=== PATIENT | female | born 1940 | race Caucasian/White ===

== ENCOUNTER 2017-02-01 08:03 | Day surgery (SDC) | payer MEDICARE, OTHER ==
[~2017-02-01] VITALS: Ht 157.5 cm; Wt 72.7 kg
[2017-02-01 08:20] VITALS: BP 113/55; PULSE 62; TEMP 98.3
[2017-02-01] MEDS ORDERED: COSOPT 2%-0.5%10 ML OU (08:21)
[2017-02-01] MEDS ORDERED: ZOCOR 20MG20 MG PO (08:29)
[2017-02-01] MEDS ORDERED: DYAZIDE 25 MG-31 CAP PO (08:30)
[2017-02-01] MEDS ORDERED: XALATAN EYE DROPS OD (08:31)
[2017-02-01] MEDS ORDERED: NAPROSYN500 MG PO (08:31)
[2017-02-01] MEDS ORDERED: CEROVITE SENIOR1 TA1 PO (08:32)
[2017-02-01] MEDS ORDERED: ALLERGY TAB PO (08:32)
[2017-02-01] MEDS ORDERED: EPA FISH OIL1 SGL PO (08:33)
[2017-02-01] MEDS ORDERED: CALCIUM 600MG+D1 TAB PO (08:33)
[2017-02-01] MEDS ORDERED: ADVIL200 MG PO (08:33)
[2017-02-01] MEDS ORDERED: ALKA-SELTZER HE1 TEF PO (08:34)
[2017-02-01 10:40] VITALS: BP 115/67; PULSE 64; TEMP 97.5
[2017-02-01 11:00] VITALS: BP 116/56; PULSE 65
[2017-02-01 11:15] VITALS: BP 115/662; PULSE 66
== END 2017-02-01 11:35 | disposition home or self-care (01) ==
LOC: SDCO 08:03
DX: D12.2 Benign neoplasm of ascending colon (principal); D12.3 Benign neoplasm of transverse colon; D12.4 Benign neoplasm of descending colon; K64.0 First degree hemorrhoids; K57.30 Diverticulosis of large intestine without perforation or abscess without bleeding; E78.00 Pure hypercholesterolemia, unspecified; Z85.43 Personal history of malignant neoplasm of ovary; Z86.010 Personal history of colon polyps; Z80.0 Family history of malignant neoplasm of digestive organs
CPT/HCPCS: OP; J2250; J3010; J7030

== ENCOUNTER 2017-12-20 15:45 | Observation (INO) | payer MEDICARE, OTHER ==
[~2017-12-20] VITALS: Ht 157.5 cm; Wt 68.4 kg
[~2017-12-20 15:45] MED LIST: ADVIL200 MG PO; ALKA-SELTZER HE1 TEF PO; ALLERGY TAB PO; CALCIUM 600MG+D1 TAB PO; CEROVITE SENIOR1 TA1 PO; COSOPT 2%-0.5%10 ML OU; DYAZIDE 25 MG-31 CAP PO; EPA FISH OIL1 SGL PO; NAPROSYN500 MG PO; XALATAN EYE DROPS OD; ZOCOR 20MG20 MG PO
[2017-12-20 16:14] LABS: BASO % 0.4 % (0.0-2.0); EOS # 0.1 (0.0-0.7); EOS % 1.3 % (0-4.0); GRAN # 7.7 (1.4-6.5); GRAN % 71.8 % (42.2-75.2); HEMATOCRIT 43.1 % (37.0-47.0); HEMOGLOBIN 15.8 g/dl (12.5-16.0); LYMPH # 1.9 (1.2-3.4); LYMPH % 17.9 % (20.0-51.0); MEAN CELL VOLUME 89 fl (80.0-100.0); MEAN CORPUSCULAR HEMOGLOBIN 32 pg (27.0-31.0); MEAN CORPUSCULAR HGB CONC 37 g/dl (33.0-37.0); MEAN PLATELET VOLUME 8.3 fl (7.4-10.4); MONO # 0.9 (0.1-0.6); MONO % 8.3 % (1.7-9.3); PLATELET COUNT 280 K/mm3 (130-400); RED BLOOD COUNT 4.87 M/mm3 (4.10-5.30)
[2017-12-20 16:27] LABS: ANION GAP 13 mmol/L (7-16); BLOOD UREA NITROGEN 16 mg/dL (7-17); CALCIUM 9.5 mg/dL (8.4-10.2); CARBON DIOXIDE 28 mmol/L (22-30); CHLORIDE 90 mmol/L (98-107); CREATININE, serum 0.89 mg/dL (0.52-1.25); GLUCOSE 108 mg/dL (74-106); SODIUM 131 mmol/L (137-145)
[2017-12-20 16:30] LABS: C-REACTIVE PROTEIN < 0.5 mg/dL (0.0-0.9)
[2017-12-20 16:36] LABS: COLLECTION METHOD CATHETER
[2017-12-20 16:42] LABS: MUCOUS Present /lpf; PH 5 (5-8); SQUAMOUS EPITHELIAL None Seen /hpf; URINE APPEARANCE Clear; URINE BACTERIA Rare /hpf; URINE BILIRUBIN Negative (NEGATIVE); URINE BLOOD Negative (NEGATIVE); URINE COLOR Yellow; URINE GLUCOSE Negative (NEGATIVE); URINE KETONE Trace (NEGATIVE); URINE LEUKOCYTE ESTERASE Negative (NEGATIVE); URINE NITRATE Negative (NEGATIVE); URINE PROTEIN(semi-quant) Negative (NEGATIVE); URINE RBC 0-2 /hpf; URINE UROBILINOGEN Negative (NEGATIVE)
[2017-12-20] MEDS ORDERED: DYAZIDE 25 MG-31 CAP PO (17:13)
[2017-12-20 22:29] VITALS: BP 151/59; PULSE 58; TEMP 97.9
[2017-12-20 23:24] VITALS: BP 143/62; PULSE 64; TEMP 97.8
[2017-12-21] VITALS (9 sets, daily range): BP systolic 123–155; BP diastolic 46–62; PULSE 60–77; TEMP 97.6–98.3
[2017-12-21 07:00] LABS: BASO % 0.1 % (0.0-2.0); GRAN # 7.1 (1.4-6.5); GRAN % 81.3 % (42.2-75.2); HEMATOCRIT 40.6 % (37.0-47.0); HEMOGLOBIN 14.9 g/dl (12.5-16.0); LYMPH # 1.3 (1.2-3.4); LYMPH % 14.3 % (20.0-51.0); MEAN CELL VOLUME 89 fl (80.0-100.0); MEAN CORPUSCULAR HEMOGLOBIN 33 pg (27.0-31.0); MEAN CORPUSCULAR HGB CONC 37 g/dl (33.0-37.0); MEAN PLATELET VOLUME 8.7 fl (7.4-10.4); MONO # 0.3 (0.1-0.6); MONO % 3.8 % (1.7-9.3); PLATELET COUNT 302 K/mm3 (130-400); RED BLOOD COUNT 4.58 M/mm3 (4.10-5.30); REDCELL DISTRIBUTION WIDTH-CV 12.1 % (11.5-14.5)
[2017-12-21 07:21] LABS: ANION GAP 14 mmol/L (7-16); BLOOD UREA NITROGEN 21 mg/dL (7-17); CALCIUM 9.1 mg/dL (8.4-10.2); CARBON DIOXIDE 25 mmol/L (22-30); CHLORIDE 94 mmol/L (98-107); CREATININE, serum 0.87 mg/dL (0.52-1.25); GLUCOSE 122 mg/dL (74-106); POTASSIUM 3.3 mmol/L (3.4-5.0); SODIUM 133 mmol/L (137-145)
[2017-12-21 07:43] LABS: PROTHROMBIN TIME 11.7 SECONDS (9.7-12.8)
[2017-12-22 04:02] VITALS: BP 129/59; PULSE 60; TEMP 97.8
[2017-12-22 07:24] VITALS: BP 132/57; PULSE 63; TEMP 97.9
[2017-12-22] MEDS ORDERED: FLEXERIL 1010 MG/TAB PO (10:35)
[2017-12-22] MEDS ORDERED: MOBIC 7.5MG7.5 MG PO (10:36)
== END 2017-12-22 16:36 | disposition home or self-care (01) ==
LOC: COL.ER 15:45 → MEDICAL 20:05
PROVIDERS: Emergency Medicine; Nurse Practitioner
DX: M51.27 Other intervertebral disc displacement, lumbosacral region (principal); M48.07 Spinal stenosis, lumbosacral region; I10 Essential (primary) hypertension; Z79.899 Other long term (current) drug therapy; Z87.891 Personal history of nicotine dependence; Z85.828 Personal history of other malignant neoplasm of skin; Z85.43 Personal history of malignant neoplasm of ovary; R29.6 Repeated falls; Z99.89 Dependence on other enabling machines and devices
CPT/HCPCS: G0378; G8978-GP; G8979-GP; G8987-GO; G8988-GO; J1885; J2930; J3010; J7030

== ENCOUNTER → 2018-06-26 | Outpatient (CLI) | payer MEDICARE, OTHER ==
[~2018-06-26] MED LIST changes: +FLEXERIL 1010 MG/TAB PO; +MOBIC 7.5MG7.5 MG PO
== END ==
LOC: MC.RAD 07:32
DX: Z12.31 Encounter for screening mammogram for malignant neoplasm of breast (principal)

== ENCOUNTER → 2019-08-09 | Outpatient (CLI) | payer MEDICARE, OTHER | LOC: MC.RAD 09:10 | DX: Z12.31 Encounter for screening mammogram for malignant neoplasm of breast (principal) ==

== ENCOUNTER → 2020-11-27 | Outpatient (CLI) | payer MEDICARE, OTHER | LOC: MC.RAD 11:20 | DX: Z12.31 Encounter for screening mammogram for malignant neoplasm of breast (principal) ==

== ENCOUNTER → 2021-02-18 | Outpatient (CLI) | payer MEDICARE, OTHER | LOC: COL.RAD 07:25 | DX: G50.0 Trigeminal neuralgia (principal) | CPT/HCPCS: A9585 ==

== ENCOUNTER → 2021-08-19 | Outpatient (CLI) | payer MEDICARE, OTHER | LOC: COL.RAD 07:15 | DX: G50.0 Trigeminal neuralgia (principal) | CPT/HCPCS: A9585 ==

== ENCOUNTER 2021-10-21 10:39 | Emergency (ER) | payer MEDICARE, OTHER ==
[~2021-10-21] VITALS: Ht 157.5 cm; Wt 72.7 kg
[2021-10-21 10:53] VITALS: TEMP 99.1
[2021-10-21 14:36] VITALS: BP 176/82; PULSE 70
== END 2021-10-21 14:40 | disposition home or self-care (01) ==
LOC: COL.ER 10:39
DX: R05.9 Cough, unspecified (principal)